=== PATIENT | female | born 1965 | race African-American/Black ===

== ENCOUNTER → 2021-01-17 13:43 | Outpatient (BNVA) | payer OTHER, SELFPAY | PROVIDERS: PCP Internal Medicine; Visit Provider Physician Assistant ==

== ENCOUNTER → 2021-01-17 13:43 | Outpatient (BNVA) | payer OTHER, SELFPAY | PROVIDERS: PCP Internal Medicine; Visit Provider Physician Assistant ==

== ENCOUNTER → 2021-02-23 13:24 | Outpatient (BNVA) | payer OTHER, SELFPAY | PROVIDERS: PCP Internal Medicine; Visit Provider Physician Assistant ==

== ENCOUNTER 2021-03-07 06:03 | Outpatient (REF) | payer OTHER, SELFPAY ==
--- NOTE | ~2021-03-07 | XR_ITS ---
EXAMINATION: XR CHEST CLINICAL INFORMATION: Shortness of breath. COMPARISON: None TECHNIQUE: 2 views of the chest were obtained. FINDINGS: The lungs are clear. The cardiomediastinal silhouette is normal in size. There is no pleural effusion or pneumothorax. No acute osseous abnormality. XR/XR chest 2V IMPRESSION: No acute cardiopulmonary findings.
--- NOTE | 2021-03-07 07:11 | ECG_ITS ---
Test Reason : SOB Blood Pressure : / mmHG Vent. Rate : 069 BPM Atrial Rate : 069 BPM P-R Int : 210 ms QRS Dur : 098 ms QT Int : 546 ms P-R-T Axes : 063 014 034 degrees QTc Int : 585 ms Sinus rhythm with sinus arrhythmia with 1st degree A-V block Possible Inferior infarct , age undetermined Abnormal ECG No previous ECGs available Referred By: Kathy Lerner Electronically Signed By:HOSSEIN JUNE
[2021-03-07 07:16] LABS: MANUAL DIFF FLAG NO
[2021-03-07 07:18] LABS: Basophils Percent Auto 0.6 % (0-2); Eosinophils Percent Auto 0.8 % (0-4); Hematocrit 42.7 % (37-47); Imm Gran Abs Auto 0.03 X10*3/uL (0.00-0.03); Imm Gran Pct Auto 0.6 % (0.0-0.4); Lymphocytes Absolute Auto 2.4 X10*3/uL (1.2-4.9); Lymphocytes Percent Auto 50.3 % (20-40); Mean Corpuscular HGB Conc 32.8 g/dl (31.0-35.0); Mean Corpuscular Hemoglobin 29.2 pg (27.0-33.0); Mean Corpuscular Volume 89.1 fL (80-98); Mean Platelet Volume 9.2 fL (9.4-12.3); Monocytes Absolute Auto 0.3 X10*3/uL (0.1-1.2); Monocytes Percent Auto 7.2 % (2-11); Neutrophils Absolute Auto 1.9 X10*3/uL (2.0-8.3); Neutrophils Percent Auto 40.5 % (45-73); Platelet Count 228 X10*3/uL (160-400); Red Blood Count 4.79 X10*6/uL (4.20-5.50); Red Cell Distribution Width 12.3 % (11.0-16.0); White Blood Count 4.8 X10*3/uL (4.8-10.8)
[2021-03-07 07:26] LABS: Estimated Average Glucose 103 mg/dL; Hemoglobin A1c % 5.2 %
[2021-03-07 07:50] LABS: Alanine Aminotransferase 25 U/L (0-31); Albumin Level 4.4 g/dL (3.5-5.0); Alkaline Phosphatase 119 U/L (39-117); Anion Gap 14 (12-20); Aspartate Amino Transferase 31 U/L (5-31); Bilirubin Total 0.5 mg/dL (0.0-1.0); Blood Urea Nitrogen 14 mg/dL (9-16); C Reactive Protein 0.08 mg/dL (< or = 0.50); Calcium 9.5 mg/dL (8.4-10.2); Carbon Dioxide 28 mmol/L (22-29); Chloride 102 mmol/L (96-108); Cholesterol 224 mg/dL; Estimated Glomerular Filt Rate 46; Glucose Fasting 102 mg/dL (60-99); HDL Cholesterol 53 mg/dL; Iron 83 mcg/dL (30-160); LDL Cholesterol Calculated 156 mg/dl; Percent Iron Saturation 26 % (15-50); Potassium 3.7 mmol/L (3.3-5.1); Sodium 140 mmol/L (135-145); Total Iron Binding Capacity 317 mcg/dL (228-428); Total Protein 8.1 g/dL (6.5-8.0); Triglycerides 77 mg/dL; Unsaturated Iron Binding 234 ug/dL
[2021-03-07 07:57] LABS: Ferritin 82 ng/mL (10-250); Vitamin D 25-OH Total 35.1 ng/mL (>30)
[2021-03-07 09:08] LABS: Folate 14.6 ng/mL (> or = 4.0); Vitamin B12 425 pg/mL (200-900)
[2021-03-08 10:47] LABS: Insulin Level Total 14.1 uIU/mL
[2021-03-08 12:22] LABS: H Pylori Breath Test NOT DETECTED (NOT DETECTED)
[2021-03-08 13:37] LABS: Calcium (PTHI) 9.4 mg/dL (8.6-10.4); PTHI 64 pg/mL (14-64)
[2021-03-10 02:22] LABS: Zinc 73 mcg/dL (60-130)
[2021-03-11 12:47] LABS: Vitamin B1 13 nmol/L (8-30)
[2021-03-11 18:22] LABS: Vitamin A 54 mcg/dL (38-98)
== END 2021-03-07 06:04 | disposition home or self-care (01) ==
LOC: HO.LAB 06:03
PROVIDERS: PCP Internal Medicine; Visit Provider Physician Assistant
DX: R06.02 Shortness of breath (principal); E66.01 Morbid (severe) obesity due to excess calories
CPT/HCPCS: 36415; 71046; 80053; 80061; 82306; 82607; 82728; 82746; 83013; 83036; 83525; 83540; 83970; 84425; 84443; 84590; 84630; 85025; 86140; 93005

== ENCOUNTER 2021-03-10 07:27 | Outpatient (REF) | payer OTHER, SELFPAY ==
--- NOTE | ~2021-03-10 | CT_ITS ---
EXAMINATION: CT ABDOMEN AND PELVIS WITH CONTRAST CLINICAL INFORMATION: There are gastric surgery status COMPARISON: None TECHNIQUE: Multidetector volumetric images were obtained from the superior aspect of the liver through the pubic symphysis following administration 85 mL of Omnipaque 350 intravenous contrast. Sagittal and coronal reformatted images were obtained on the technologist's workstation. Oral contrast: Yes This CT examination was performed using dose optimization techniques as appropriate, variously including the following: *Automated exposure control *Adjustment of mA and/or kV according to patient size (this includes techniques or standardized protocols for targeted exams where dose is matched to indication/reason for exam; i.e. extremities or head) *Use of iterative reconstruction technique DLP: 526 mGy-cm FINDINGS: LUNG BASES: The visualized lung bases are unremarkable. LIVER, GALLBLADDER, AND BILIARY TREE: The liver is low in attenuation suggestive of fatty infiltration. No focal hepatic lesion or biliary ductal dilatation is present. The gallbladder is unremarkable with no evidence of radiopaque gallstones, gallbladder wall thickening, or obvious pericholecystic inflammatory changes. PANCREAS: Unremarkable. SPLEEN: Unremarkable. ADRENAL GLANDS: Unremarkable. KIDNEYS AND URETERS: The kidneys are normal in size, shape, and attenuation. No hydronephrosis, hydroureter, or calculi seen. No perinephric stranding. BLADDER: Unremarkable. GASTROINTESTINAL TRACT: There is a gastric lap band in satisfactory position. The ankle measures 49 degrees. The small and large bowel are unremarkable. The appendix is is not identified. ABDOMINAL WALL: No significant hernia is appreciated. LYMPH NODES: Normal. VASCULAR: Unremarkable. PELVIC VISCERA: There is a small subserosal posterior uterine fundus fibroid. Adnexa appear unremarkable. OSSEOUS STRUCTURES: Unremarkable. CT/CT abdomen pelvis w con IMPRESSION: Gastric lap band. Fatty liver. Small uterine fibroid.
[2021-03-10] MEDS: iohexoL 350 MG/ML 100 ML INFUS..BTL IV (12:18)
[2021-03-10] MEDS: Barium Sulfate Oral (Berry) 450 ML ORAL.SUSP 900 ML PO (12:19)
== END 2021-03-10 07:28 | disposition home or self-care (01) ==
LOC: HO.CT 07:27
PROVIDERS: Absent Provider Physician Assistant; PCP Internal Medicine; Visit Provider Surgery
DX: R10.11 Right upper quadrant pain (principal); E66.9 Obesity, unspecified; Z98.84 Bariatric surgery status
CPT/HCPCS: 74177; Q9967

== ENCOUNTER 2021-03-16 06:57 | Outpatient (REF) | payer OTHER, SELFPAY ==
--- NOTE | ~2021-03-16 | FL_ITS ---
EXAMINATION: FL UPPER GI SERIES CLINICAL INFORMATION: Bariatric service evaluation. Prior gastric lap band. Candidate for gastric sleeve. COMPARISON: CT abdomen and pelvis with contrast 03/10/2021 TECHNIQUE: Upper GI series is performed using fluoroscopic evaluation in addition to multiple fluoroscopic spot views. The patient is imaged both upright and prone and using both thick and thin barium sulfate along with effervescent granules. Fluoroscopy time: 1.5 minutes DAP: 25.91 Gycm2 Fluoroscopic spot images: 22 FINDINGS: Preliminary surface grinder film notes gastric lap band. There is some faint retained contrast still seen in the transverse colon from CT abdomen and pelvis 03/10/2021. There are bilateral nipple piercings. There is normal esophageal motility. There is no obstruction, stricture, ulceration, or hernia. There is spontaneous gastroesophageal reflux noted during fluoroscopy to mid thoracic esophagus. There is prior gastric lap band in expected position. Contrast rapidly passes through the band to fill the stomach. There is no thickening of folds or ulcer crater. No gastric outlet obstruction. The duodenal bulb is pliable and without ulcer crater or scarring. The post bulbar duodenum the jejunal mucosal pattern are unremarkable. FL/FL upper GI series IMPRESSION: 1. Spontaneous gastroesophageal reflux to mid thoracic esophagus. No hiatal hernia. 2. Prior gastric lap band in expected position. No ulceration or gastric thickening of folds.
--- NOTE | ~2021-03-16 | US_ITS ---
EXAMINATION: US COMPLETE ABDOMEN WITH LIVER ELASTOGRAPHY CLINICAL INFORMATION: Bariatric service evaluation. E66.9 COMPARISON: CT abdomen and pelvis with contrast 03/10/2021. TECHNIQUE: Real-time imaging of the abdominal viscera. Noninvasive ultrasound liver fibrosis assessment is performed using [employer] ElastPQ point quantification shear wave elastography (pSWE) with a C5-2 MHz transducer. Multiple elastography samples are obtained. FINDINGS: PANCREAS: The pancreas is normal in size and contour and echogenicity. No pancreatic ductal dilatation. ABDOMINAL AORTA: The proximal, middle, and distal aortic segments are normal in caliber. INFERIOR VENA CAVA: Visualized portions are normal. LIVER: The liver is normal in size and smooth in contour. Hepatic parenchymal echogenicity is within normal. There is no focal parenchymal lesion or intrahepatic ductal dilatation. The right lobe measures 12.2 cm in length. The left lobe measures 10.7 cm in length. Portal flow is towards the liver (hepatopetal). Shear wave liver elastography median stiffness is 1.49 m/s (reference: normal median stiffness is 1.3 m/s or less). IQR/median stiffness to assess sampling precision is 0.17 (reference: good quality data set is IQR/median stiffness of 0.15 or less). GALLBLADDER: There are multiple layering stones in the gallbladder. No gallbladder wall thickening or pericholecystic fluid. Negative sonographic Ernandez's sign. COMMON BILE DUCT: Upper limits of normal measuring 0.6-0.7 cm in diameter. RIGHT KIDNEY: Normal. No hydronephrosis. No renal calculi or focal parenchymal lesions. The kidney measures 9.3 cm in maximum dimension. LEFT KIDNEY: Normal. No hydronephrosis. No renal calculi or focal parenchymal lesions. The kidney measures 9.2 cm in maximum dimension. SPLEEN: Normal. The spleen measures 8.4 cm in maximum dimension. FREE FLUID: None. US/US abdomen comp w elastography IMPRESSION: 1. Cholelithiasis. No gallbladder wall thickening or ductal dilatation. 2. Liver normal in size and homogeneous. 3. Liver elastography: In the absence of other known clinical signs, measurements rule out compensated advanced chronic liver disease. If there are known clinical signs, further testing may be needed for confirmation. REFERENCE: Society of Radiologists in Ultrasound Liver Stiffness Thresholds (2020): LIVER STIFFNESS THRESHOLDS: *Liver Stiffness equal or less than 1.3 m/s: High probability of being normal. *Liver Stiffness less than 1.7 m/s: In the absence of other known clinical signs, rules out compensated advanced chronic liver disease. *Liver Stiffness 1.7-2.1 m/s: Suggestive of compensated advanced chronic liver disease but need further test for confirmation. *Liver Stiffness over 2.1 m/s: Rules in compensated advanced chronic liver disease. *Liver Stiffness over 2.4 m/s: Suggestive of clinically significant portal hypertension. QUALITY OF DATA SET: *IQR/Median value equal or less than 0.15 implies a quality data set. *IQR/Median value over 0.15 implies a poor quality data set. SIGNIFICANT CHANGE FROM PRIOR EXAM: Significant change if liver stiffness measurement is 10% or greater from prior exam. OTHER CONSIDERATIONS: The stage of liver fibrosis may be overestimated in the setting of acute hepatitis, liver inflammation, elevated liver function tests, hepatic vascular congestion, obstructive cholestasis, non-fasting state, and infiltrative diseases such as amyloidosis and lymphoma. In some patients with NAFLD, the liver stiffness thresholds for compensated advanced chronic liver disease may be lower. In causes other than viral hepatitis and NAFLD, liver stiffness thresholds are not well established.
== END 2021-03-16 06:58 | disposition home or self-care (01) ==
LOC: HO.US 06:57
PROVIDERS: PCP Internal Medicine; Visit Provider Surgery
DX: Z01.818 Encounter for other preprocedural examination (principal); E66.01 Morbid (severe) obesity due to excess calories; K21.9 Gastro-esophageal reflux disease without esophagitis; R11.10 Vomiting, unspecified; Z98.84 Bariatric surgery status
CPT/HCPCS: 74240; 76705; 76981

== ENCOUNTER → 2021-03-17 07:58 | Outpatient (BNVA) | payer OTHER, SELFPAY | PROVIDERS: PCP Internal Medicine; Visit Provider Surgery ==

== ENCOUNTER 2021-03-28 08:23 | Day surgery (SDC) | payer OTHER, SELFPAY ==
--- NOTE | 2021-03-27 09:44 | HO.ANESPROP2 ---
Documented by User: Johanny Stack 03/27/21 09:46 HPI - Anesthesia Eval Consult details Narrative: 55yo F for Upper Endoscopy PMFSH Active Problems Active Problems: All Active Problems (Updated 03/17/21 @ 15:20 by Casper Barrett MD) Depression (Acute) GERD (gastroesophageal reflux disease) (Acute) BMI over 35 (Acute) Obesity (Acute) Abnormal EKG (Acute) MDD (major depressive disorder), recurrent, in partial remission (Acute) Vitamin B12 deficiency (Acute) Pre-op testing (Acute) Hx of laparoscopic gastric banding (Acute) Emesis (Acute) Obesity, Class II, BMI 35-39.9 (Acute) JOSEF on CPAP (Acute) Hypertension (Acute) Myopia (Acute) Hip bursitis (Acute) Carpal tunnel syndrome of right wrist (Acute) Urinary incontinence (Acute) Past Medical History Medical History Abnormal EKG Carpal tunnel syndrome of right wrist Depression GERD (gastroesophageal reflux disease) Hip bursitis History of Hypertension Hypoxia Myopia Obesity, Class II, BMI 35-39.9 JOSEF on CPAP Urinary incontinence Family History Family History Father No problems noted. Mother Hypertension High cholesterol Ovarian cyst Sister History of cancer Breast cancer Surgical History Surgical History History of bladder suspension procedure History of carpal tunnel surgery of right wrist Hx of laparoscopic gastric banding Social History Social History Alcohol intake: current Alcohol intake frequency: holidays/special occasions only Smoking Status: Never smoker Use of substances other than those prescribed or required for medical reasons: Yes Substance Use Type: Marijuana Have you been hit, kicked, punched, or otherwise hurt by someone within the past year? If so, by whom?: No Are you DNR?: No Advance Directives: No Advance Directives Information Provided: Yes Meds Allergies Allergy/AdvReac Type Severity Reaction Status Date / Time No Known Allergies Allergy Verified 03/17/21 15:13 Home Medications Medication Instructions Recorded Confirmed Last Taken Type bupropion HCl 300 mg 24 hr tablet, 300 mg PO DAILY 02/23/21 03/17/21 Unknown History extended release diltiazem HCl 240 mg 240 mg PO DAILY 02/23/21 03/17/21 Unknown History capsule,extended release 24 hr valsartan 160 1 tab PO DAILY 02/23/21 03/17/21 Unknown History mg-hydrochlorothiazide 12.5 mg tablet Exam Exam Date and Time: March 27, 2021 0944 Narrative Narrative: EKG 02/2021 Vent. Rate : 069 BPM Atrial Rate : 069 BPM P-R Int : 210 ms QRS Dur : 098 ms QT Int : 546 ms P-R-T Axes : 063 014 034 degrees QTc Int : 585 ms Sinus rhythm with sinus arrhythmia with 1st degree A-V block Possible Inferior infarct , age undetermined Abnormal ECG No previous ECGs available Assessment and Plan Assessment Anesthesia Assessment: Chart Reviewed Documented by User: Wayne Kim 03/28/21 10:32 [facility] Past Medical History Medical History Abnormal EKG Carpal tunnel syndrome of right wrist Depression GERD (gastroesophageal reflux disease) Hip bursitis History of Hypertension Hypoxia Myopia Obesity, Class II, BMI 35-39.9 JOSEF on CPAP Urinary incontinence Family History Family History Father No problems noted. Mother Hypertension High cholesterol Ovarian cyst Sister History of cancer Breast cancer Surgical History Surgical History History of bladder suspension procedure History of carpal tunnel surgery of right wrist Hx of laparoscopic gastric banding Social History Social History Alcohol intake: current Alcohol intake frequency: holidays/special occasions only Smoking Status: Never smoker Use of substances other than those prescribed or required for medical reasons: Yes Substance Use Type: Marijuana Have you been hit, kicked, punched, or otherwise hurt by someone within the past year? If so, by whom?: No Are you DNR?: No Advance Directives: No Advance Directives Information Provided: Yes Meds Allergies Allergy/AdvReac Type Severity Reaction Status Date / Time No Known Allergies Allergy Verified 03/17/21 15:13 Home Medications Medication Instructions Recorded Confirmed Last Taken Type bupropion HCl 300 mg 24 hr tablet, 300 mg PO DAILY 02/23/21 03/17/21 Unknown History extended release diltiazem HCl 240 mg 240 mg PO DAILY 02/23/21 03/17/21 Unknown History capsule,extended release 24 hr valsartan 160 1 tab PO DAILY 02/23/21 03/17/21 Unknown History mg-hydrochlorothiazide 12.5 mg tablet Exam Airway Mallampati Class: II TM Dist: >3cm Neck ROM: Full Loose/Missing/Broken Teeth: No Heart: [id number] Lungs: cta b/l Assessment and Plan Assessment Anesthesia Assessment: Anesthesia Plan Discussed, PAT Visit and Chart Reviewed Final Anesthetic Review NPO: Yes ASA Class: III Final Preanesthetic Review: No Changes in Pt Med Stat, Meds/Allgs Chart Reviewed, Consent Obtained/Reviewed and Anes Risks/Benef Reviewed Patient Risk: Intermediate Procedure Risk: Low Assessment/Block/Sedation in SS: Assess/Block/Sedation-SS Anesthetic Plan Anesthetic Plan: MAC: and Agree w/ Assess. and Plan Disposition: Standard PACU
--- NOTE | 2021-03-27 17:45 | MHC.SHP ---
Pre-Procedural Eval Section A The patient is an INPATIENT: No The History & Physical has been completed within 30 days and I have reviewed it.: No Section B Chief Complaint: reflux disease Details of Present Illness: GERD, s/p lap band Relevant Family History (Specify if Yes): No Relevant Social History: None Present Medications: see Short Stay Collaborative assessment Medical History: No relevant PMH History of Previous Operations: Relevant previous surgery/procedure and date(s) (lap band surgery) Allergies: Allergies Allergy/AdvReac Type Severity Reaction Status Date / Time No Known Allergies Allergy Verified 03/17/21 15:13 Review of Systems Sugical H&P ROS: Negative: Constitution, Cardiovascular, Respiratory, Neurological, Psychiatric, Hem-Onc, Allergic/Immunologic, Gastrointestinal, Genitourinary, Musculoskeletal, Integumentary, Endocrine and Eyes/Ears/Nose/Throat Exam Surgical H&P Exam: Normal: HEENT, Normal: Heart, Normal: Lungs, Normal: Extremities, Normal: Abdomen, Normal: Skin and Normal: Neurological Plan Diagnosis/Plan: Unchanged (EGD to assess GERD and to rule out erosion from lap band) I have reviewed the history and physical and performed a pertinent physical examination on my patient. No changes have occurred unless specified.
[2021-03-28 08:49] VITALS: BP 143/94; PULSE 74; RESP 18; TEMP 35.9; O2SAT 97
[2021-03-28 09:17] VITALS: BMI 35.5
[2021-03-28] MEDS: Lactated Ringers 1,000 ML 100 ML IVCONT (09:19)
[2021-03-28 09:26] LABS: COVID-19 Test Negative (Negative)
--- NOTE | 2021-03-28 11:07 | P.BOP_ITS ---
Brief Operative Note Date of Service: 03/28/21 Pre-op diagnosis: Nausea and vomiting Post-op diagnosis: same (Esophagitis grade I and hiatal hernia) Procedure: DATE: 03/28/2021 PREOPERATIVE DIAGNOSIS: GERD, nausea and vomiting s/p lap band POSTOPERATIVE DIAGNOSIS: Same as above. Esophagitis grade I and diaphragmatic hernia PROCEDURE: Alnhfthh-kfkhbi-arllflczslki with biopsies Surgeon: Bijan Barrett M.D.. Ph.D. Special Education Preschool Teacher: None Anesthesia: IV sedation Estimated blood loss: Minimal FINDINGS AND PROCEDURE: OPERATIVE INDICATIONS: The patient is a 55 year old female known to me who underwent a laparoscopic gastric band elsewhere. The patient had poor weight loss so far and has been complaining of GERD, nausea and vomiting. Based on this information I recommended an upper endoscopy to evaluate the patient's symptoms. Risks and complications of the surgery were discussed with the patient in advance particularly the possibility of perforation or bleeding that may require surgical intervention. The patient understood the risks and was in agreement with the plan. PROCEDURE: After informed consent was obtained by the patient, the patient was transferred to the Operating Room and was placed in the supine position. After successful induction of IV sedation, a mouth block was inserted and the patient was placed in the left lateral decubitus position. An upper endoscopy was performed next, the oropharynx and esophagus appeared within the normal limits. There was a 3cm hiatal hernia. The z-line was irregular with tongues of gastric mucosa protruding to the esophagus in a >25% of circumference. The stomach was entered and it appeared to be of normal size. There was no band erosion, gastritis and no ulcer. The scope was advanced into the duodenum which appeared to be normal as well. Retroflexion was performed and again no band erosion was seen. At that point the duodenum and the stomach were decompressed and the scope was withdrawn from the patient's mouth. The patient was awaken and was transferred in stable condition to the Recovery Room for further care. I was present and performed all steps of the procedure. There were no residents to assist with this case. Bijan Barrett M.D., Ph.D. Surgeon: Casper Barrett MD Anesthesia: MAC Was an Special Education Preschool Teacher used for this Procedure?: No Estimated blood loss (mL): 0 IV fluids (mL): 400 Urine output (mL): 0 (No Kerr to record) Pathology: other (1) GE junction x2 2) Distal esophagus x2 3) stomach x1 ) Condition: stable Disposition: PACU
[2021-03-28 11:14] VITALS: BP 107/63; PULSE 86; RESP 12; TEMP 36.7; O2SAT 98
[2021-03-28 11:29] VITALS: BP 135/90; PULSE 71; RESP 17; TEMP 36.7; O2SAT 99
== END 2021-03-28 12:45 ==
LOC: HO.SSS 08:24
PROVIDERS: PCP Internal Medicine; Visit Provider Surgery
PROC: 0DJ08ZZ Inspection of Upper Intestinal Tract, Via Natural or Artificial Opening Endoscopic (ICD-10-PCS; CPT 43235; principal; 2021-03-28 10:30)
DX: K21.00 Gastro-esophageal reflux disease with esophagitis, without bleeding (principal); Z98.84 Bariatric surgery status; R11.2 Nausea with vomiting, unspecified; K44.9 Diaphragmatic hernia without obstruction or gangrene; I10 Essential (primary) hypertension; G47.33 Obstructive sleep apnea (adult) (pediatric); Z99.89 Dependence on other enabling machines and devices; Z79.899 Other long term (current) drug therapy
CPT/HCPCS: 43239; 36415; 87635; 88305; 88342; J1100

== ENCOUNTER → 2021-03-29 08:21 | Outpatient (BNVA) | payer OTHER, SELFPAY | PROVIDERS: PCP Internal Medicine; Visit Provider Dietitian, Registered | DX: E66.9 Obesity, unspecified (principal); Z68.36 Body mass index [BMI] 36.0-36.9, adult | CPT/HCPCS: 97802 ==

== ENCOUNTER → 2021-04-07 08:20 | Outpatient (BNVA) | payer OTHER, SELFPAY | PROVIDERS: PCP Internal Medicine; Visit Provider Surgery ==

== ENCOUNTER → 2021-05-02 07:45 | Outpatient (BNVA) | payer OTHER, SELFPAY | PROVIDERS: PCP Internal Medicine; Visit Provider Surgery ==

== ENCOUNTER → 2021-05-09 07:59 | Outpatient (REF) | payer OTHER, SELFPAY ==
--- NOTE | 2021-05-09 08:03 | CA_ITS ---
Transthoracic Echocardiogram Patient (Last, First, Middle): Ximnea Jordan S Gender: Female Date of : 1965 Age: 55 Procedure Date: 05/09/2021 Procedure Type: Transthoracic Echocardiogram Location: OP Height: 154.94 cm Weight: 81.65 kg BSA: 1.81 m2 Heart Rate: bpm BP: 125 / 80 mmHg Senior Supply Chain Analyst: Referring MD: Casper Barrett MD Symptoms: R94.31 - Abnormal electrocardiogram [ECG] [EKG] Study Quality: Good ECG Rhythm: Sinus Conclusions: - The left ventricular systolic function is normal. The visually estimated ejection fraction is between 55-60%. - There is mild anterior mitral leaflet thickening. There is bowing of the posterior mitral leaflet without obvious prolapse. There is trace mitral valve regurgitation. Findings Left Ventricle Normal left ventricular cavity size. There is normal left ventricular wall thickness. The left ventricular systolic function is normal. The visually estimated ejection fraction is between 55-60%. There is no evidence of regional wall motion abnormalities. E/E prime ratio is between 8 and 15 consistent with indeterminate filling pressures. Evidence suggests grade I (mild) diastolic dysfunction. Right Ventricle Normal right ventricular cavity size and systolic function. Atria The left atrium is normal in size. The right atrium is normal in size. Aortic Valve There is a normal trileaflet aortic valve. There is no aortic valve stenosis. There is no aortic valve regurgitation. Mitral Valve There is mild anterior mitral leaflet thickening. There is bowing of the posterior mitral leaflet without obvious prolapse. There is trace mitral valve regurgitation. There is no mitral valve stenosis. Pulmonic Valve The pulmonic valve was not well visualized. Tricuspid Valve Normal tricuspid valve structure. There is trace tricuspid valve regurgitation. The pulmonary artery systolic pressure is normal. Great Vessels The aortic annulus, sinuses of valsalva, and asc aorta are normal in size. Venous The inferior vena cava is normal in size and collapses greater than 50% with inspiration. Pericardium/Pleural There is no evidence of pericardial effusion. Prior Study Comparison No prior study available for comparison. Measurements 2D Linear Measurements IVSd: 1.22 0.6-0.9/0.6-1.0 cm LVIDd: 3.39 3.9-5.3/4.2-5.9 cm LVIDd Index: 1.87 2.4-3.2/2.2-3.1 cm/m2 LVIDs: 2.16 2.0-3.6 cm LVPWd: 1.26 0.7-1.1 cm Ao Root: 3.60 2.1-3.5 cm LA Diam: 2.90 2.7-3.8/3.0-4.0 cm LAIDs Index: 1.60 1.5-2.3 cm/m2 LV Mass: 169.84 67-162/88-224 g LV Mass Index: 93.83 43-95/49-115 g/m2 LVOT Diam: 2.10 3.0+(-)1.3 cm Mitral Valve MV Pk E: 0.56 MV PK A: 0.91 MV Decel Time: 231.00 E/A: 0.60 E'Lateral: 4.24 E'Medial: 4.90 E/E' Med: 11.40 E/E' Lat: 13.20 PHT: 68.00 MVA PHT: 3.24 Decel [place]: 2.43 Aortic Valve AoV Pk Frankie: 1.30 AoV Mn Frankie: 0.87 AoV VTI: 0.27 AoV Pk Grad: 7.00 Aov Mn Grad: 4.00 JOYA Cont.VTI: 1.79 LVOT LVOT Pk Frankie: 0.65 LVOT Mn Frankie: 0.48 LVOT VTI: 0.14 LVOT Pk Grad: 2.00 LVOT Mn Grad: 1.00 LVOT Diam: 2.10 LVOT Area: 3.46 Diastolic Function MV Pk E: 0.56 MV Pk A: 0.91 E/A: 0.60 E'Medial: 4.90 E/E' Med: 11.40 E' Laterial: 4.24 E/E' Lat: 13.20 Tricuspid Valve TR Pk Frankie: 1.65 TR Pk Grad: 11.00 RA Press: 3.00 Great Vessels Aorta Ao Root-2D: 3.60 2.0-3.7 cm Ao Asc: 3.50 2.1-3.4 cm Pulmonary Valve PV Pk Frankie: 0.86 Peak PV Grad: 3.00 Updated in Other Vendor System with Status of Final Salvatore Harden MD electronically signed on 05/09/2021 1:58:46 PM with status of Final
--- NOTE | 2021-05-09 08:03 | CA_ITS ---
Acquisition Time: 2021-05-09 10:01:07 Total Exercise Time: 00:08:06 Test Indications: Abnormal ECG Medications: LOSARTAN Protocol: AVANI Max HR: 141 BPM 84% of Pred: 166 BPM Max BP: 140/070 mmHG Max Work Load: 10.1 METS Exercise stress test with exercise 8 min 6 sec of Avani protocol, achieving 78% MPHR, 10.1 METs, with request to stop due to fatigue/ knee discomfort, without anginal symptoms, with isolated PVCs, with normotensive response to exercise, with nondiagnostic EKG for ischemia due to suboptimal heart rate. Test reviewed with Dr Harden. Referred By: Kathy Lerner Overread By: JEREMI COLVIN
== END ==
LOC: HO.CARD 07:59
PROVIDERS: Visit Provider Surgery
DX: Z01.818 Encounter for other preprocedural examination (principal); R06.02 Shortness of breath; I10 Essential (primary) hypertension; R94.31 Abnormal electrocardiogram [ECG] [EKG]
CPT/HCPCS: 93017; 93306

== ENCOUNTER → 2021-06-07 08:03 | Outpatient (BNVA) | payer OTHER, SELFPAY | PROVIDERS: PCP Internal Medicine; Visit Provider Surgery ==

== ENCOUNTER → 2021-07-19 07:45 | Outpatient (BNVA) | payer OTHER, SELFPAY | PROVIDERS: PCP Internal Medicine; Visit Provider Surgery ==

== ENCOUNTER → 2021-08-18 08:14 | Outpatient (BNVA) | payer OTHER, SELFPAY | PROVIDERS: PCP Internal Medicine; Visit Provider Surgery ==

== ENCOUNTER → 2021-09-01 08:13 | Outpatient (BNVA) | payer OTHER, SELFPAY | PROVIDERS: PCP Internal Medicine; Referring Provider Internal Medicine; Visit Provider Physician Assistant ==

== ENCOUNTER → 2021-09-08 10:48 | Outpatient (BNVA) | payer OTHER, SELFPAY | PROVIDERS: PCP Internal Medicine; Referring Provider Internal Medicine; Visit Provider Physician Assistant Surgical ==

== ENCOUNTER → 2021-09-11 08:07 | Outpatient (BNVA) | payer OTHER, SELFPAY | PROVIDERS: PCP Internal Medicine; Visit Provider Surgery ==

== ENCOUNTER → 2021-09-13 09:28 | Outpatient (BNVA) | payer OTHER, SELFPAY | PROVIDERS: PCP Internal Medicine; Visit Provider Physician Assistant ==

== ENCOUNTER 2021-09-19 08:26 | Inpatient (IN) | payer OTHER, SELFPAY ==
[2021-09-12 11:46] VITALS: BMI 31.2
[2021-09-13 09:20] LABS: MANUAL DIFF FLAG NO
[2021-09-13 10:08] LABS: Basophils Percent Auto 0.5 % (0-2); Eosinophils Absolute Auto 0.1 X10*3/uL (0.0-0.4); Eosinophils Percent Auto 1.1 % (0-4); Hematocrit 41.6 % (37-47); Hemoglobin 13.9 g/dl (12.0-16.0); Imm Gran Abs Auto 0.02 X10*3/uL (0.00-0.03); Imm Gran Pct Auto 0.5 % (0.0-0.4); Lymphocytes Absolute Auto 2.2 X10*3/uL (1.2-4.9); Lymphocytes Percent Auto 50.7 % (20-40); Mean Corpuscular HGB Conc 33.4 g/dl (31.0-35.0); Mean Corpuscular Hemoglobin 29.7 pg (27.0-33.0); Mean Corpuscular Volume 88.9 fL (80-98); Mean Platelet Volume 9.6 fL (9.4-12.3); Monocytes Absolute Auto 0.3 X10*3/uL (0.1-1.2); Monocytes Percent Auto 6.7 % (2-11); Neutrophils Absolute Auto 1.8 X10*3/uL (2.0-8.3); Neutrophils Percent Auto 40.5 % (45-73); Platelet Count 202 X10*3/uL (160-400); Red Blood Count 4.68 X10*6/uL (4.20-5.50); Red Cell Distribution Width 12.9 % (11.0-16.0); White Blood Count 4.4 X10*3/uL (4.8-10.8)
[2021-09-13 10:14] LABS: INTERNATIONAL NORM RATIO 1.1 (0.9-1.1); Prothrombin Time 12.2 SEC (9.9-13.0)
[2021-09-13 10:16] LABS: Partial Thromboplastin Time 41.9 SEC (24.1-38.0)
[2021-09-13 10:41] LABS: Alanine Aminotransferase 19 U/L (0-31); Albumin Level 4.2 g/dL (3.5-5.0); Alkaline Phosphatase 109 U/L (39-117); Anion Gap 14 (12-20); Aspartate Amino Transferase 26 U/L (5-31); Bilirubin Total 0.6 mg/dL (0.0-1.0); Blood Urea Nitrogen 8 mg/dL (9-16); C Reactive Protein 0.13 mg/dL (< or = 0.50); Calcium 9.9 mg/dL (8.4-10.2); Carbon Dioxide 28 mmol/L (22-29); Chloride 103 mmol/L (96-108); Cholesterol 226 mg/dL; Creatinine Clr Calc Pharmacy 56.9; Estimated Glomerular Filt Rate 52; Glucose Random 82 mg/dL (60-115); HDL Cholesterol 56 mg/dL; LDL Cholesterol Calculated 153 mg/dl; Potassium 3.6 mmol/L (3.3-5.1); Sodium 141 mmol/L (135-145); Total Protein 7.8 g/dL (6.5-8.0); Triglycerides 87 mg/dL
[2021-09-13 10:46] LABS: Estimated Average Glucose 100 mg/dL; Hemoglobin A1c % 5.1 %
[2021-09-13 11:08] LABS: Insulin 8 uU/mL (2-29)
--- NOTE | 2021-09-18 10:54 | HO.ANESPROP2 ---
Documented by User: Johanny Stack NP 09/18/21 11:00 HPI - Anesthesia Eval Consult details Narrative: 55yo M for Lap Band Removal Conversion to Gastric Sleeve Clear per cardiology: No cardiac hx. EKG shows inferior Q wave. She had echo showing normal EF, grade 1 diastolic dysfunction, mild mitral leaflet thickening and bowing without obvious prolapse. ETT with exercise 8 min 10.1 MET no angina or EKG changes noted at acheived 78% MPHR.? case reviewed with dr García. Pt is low to intermediate cardiac risk to proceed with bariatric surgery. Call/ consult cardiology if needed [facility] Active Problems Active Problems: All Active Problems (Updated 09/12/21 @ 11:45 by Gloria West, RN) JOSEF on CPAP (Acute) Emesis (Acute) Pre-op testing (Acute) Vitamin B12 deficiency (Acute) MDD (major depressive disorder), recurrent, in partial remission (Acute) Obesity (Acute) BMI over 35 (Acute) BMI 34.0-34.9,adult (Acute) BMI 32.0-32.9,adult (Acute) BMI 33.0-33.9,adult (Acute) Depression (Acute) GERD (gastroesophageal reflux disease) (Acute) Abnormal EKG (Acute) Hx of laparoscopic gastric banding (Acute) Obesity, Class II, BMI 35-39.9 (Acute) Hypertension (Acute) Myopia (Acute) Hip bursitis (Acute) Carpal tunnel syndrome of right wrist (Acute) Urinary incontinence (Acute) Past Medical History Medical History Abnormal EKG Anxiety Carpal tunnel syndrome of right wrist Depression GERD (gastroesophageal reflux disease) Hiatal hernia Hip bursitis History of Hypertension Hypoxia Low back pain Myopia Obesity, Class II, BMI 35-39.9 Sleep apnea Urinary incontinence Family History Family History Father No problems noted. Mother Hypertension High cholesterol Ovarian cyst Sister History of cancer Breast cancer Surgical History Surgical History History of bladder suspension procedure History of carpal tunnel surgery of right wrist History of esophagogastroduodenoscopy (EGD) Hx of colonoscopy Hx of laparoscopic gastric banding Social History Social History (Updated 09/12/21 @ 11:52 by Gloria West RN) Are you a primary day care teacher to a significant other at home: No Do you presently have visiting nurse or other home services: No Alcohol intake: current Alcohol intake frequency: holidays/special occasions only Patient Tobacco Use Status: Never used Tobacco Have you been hit, kicked, punched, or otherwise hurt by someone within the past year? If so, by whom?: No Are you DNR?: No Advance Directives: No Advance Directives Information Provided: No (info mailed) Advance Directives on File: No Recently lost weight without trying: No Patient : No Meds Allergies Allergy/AdvReac Type Severity Reaction Status Date / Time No Known Allergies Allergy Verified 09/19/21 08:39 Home Medications Medication Instructions Recorded Confirmed Last Taken Type bupropion HCl 300 mg 24 hr tablet, 300 mg PO DAILY 02/23/21 09/13/21 09/19/21 06:00 History extended release diltiazem HCl 240 mg 240 mg PO DAILY 02/23/21 09/13/21 Unknown History capsule,extended release 24 hr valsartan 160 1 tab PO DAILY 02/23/21 09/13/21 Unknown History mg-hydrochlorothiazide 12.5 mg tablet Exam Exam Date and Time: September 18, 2021 1054 Height,Weight and Vital Signs: Height 5 ft 2 in Weight 77.564 kg Pertinent Lab Results Pertinent Lab Results: Laboratory Tests 09/13/21 09/13/21 09/13/21 09:15 09:15 09:15 WBC 4.4 L RBC 4.68 Hgb 13.9 Hct 41.6 MCV 88.9 MCH 29.7 MCHC 33.4 RDW 12.9 Plt Count 202 MPV 9.6 Immature Gran % (Auto) 0.5 H Neut % (Auto) 40.5 L Lymph % (Auto) 50.7 H [place] % (Auto) 6.7 Eos % (Auto) 1.1 Baso % (Auto) 0.5 Lymph # (Auto) 2.2 [place] # (Auto) 0.3 Eos # (Auto) 0.1 Baso # (Auto) 0.0 Abs Immat Gran (auto) 0.02 Absolute Neuts (auto) 1.8 L Absolute Nucleated RBC 0.000 Nucleated RBC % (auto) 0.0 PT 12.2 INR 1.1 APTT 41.9 H Sodium 141 Potassium 3.6 Chloride 103 Carbon Dioxide 28 Anion Gap 14 BUN 8 L Creatinine 1.09 Estim Creat Clear Calc 56.9 Estimated GFR 52 Random Glucose 82 Estimat Average Glucose Hemoglobin A1c % Insulin Level 8 Calcium 9.9 Total Bilirubin 0.6 AST 26 ALT 19 Alkaline Phosphatase 109 C-Reactive Protein 0.13 Total Protein 7.8 Albumin 4.2 Triglycerides 87 Cholesterol 226 LDL Cholesterol, Calc 153 HDL Cholesterol 56 TSH 0.80 Blood Type Antibody Screen 09/13/21 09/13/21 09:15 09:15 WBC RBC Hgb Hct MCV MCH MCHC RDW Plt Count MPV Immature Gran % (Auto) Neut % (Auto) Lymph % (Auto) [place] % (Auto) Eos % (Auto) Baso % (Auto) Lymph # (Auto) [place] # (Auto) Eos # (Auto) Baso # (Auto) Abs Immat Gran (auto) Absolute Neuts (auto) Absolute Nucleated RBC Nucleated RBC % (auto) PT INR APTT Sodium Potassium Chloride Carbon Dioxide Anion Gap BUN Creatinine Estim Creat Clear Calc Estimated GFR Random Glucose Estimat Average Glucose 100 Hemoglobin A1c % 5.1 Insulin Level Calcium Total Bilirubin AST ALT Alkaline Phosphatase C-Reactive Protein Total Protein Albumin Triglycerides Cholesterol LDL Cholesterol, Calc HDL Cholesterol TSH Blood Type A Positive Antibody Screen NEGATIVE Narrative Narrative: EKG 02/2021 Vent. Rate : 069 BPM ? ? Atrial Rate : 069 BPM ?? P-R Int : 210 ms? QRS Dur : 098 ms ? ? QT Int : 546 ms ? ? ? P-R-T Axes : 063 014 034 degrees ?? QTc Int : 585 ms ? Sinus rhythm with sinus arrhythmia with 1st degree A-V block Possible Inferior infarct , age undetermined Abnormal ECG No previous ECGs available ECHO 04/2021 Conclusions: - The left ventricular systolic function is normal.? The visually estimated ejection fraction is between 55-60%. ? - There is mild anterior mitral leaflet thickening. There is ? ? bowing of the posterior mitral leaflet without obvious prolapse. There is trace mitral valve regurgitation. ?? Exercise stress 04/2021 Protocol: YANG ? Max HR: 141 BPM? 84% of? Pred: 166 BPM Max BP: 140/070 mmHG Max Work Load: 10.1 METS ? Exercise stress test with exercise 8 min 6 sec of Yang protocol, achieving 78% ?MPHR, 10.1 METs, with request to stop due to fatigue/ knee discomfort, without ?anginal symptoms, with isolated PVCs, with normotensive response to exercise, ?with nondiagnostic EKG for ischemia due to suboptimal heart rate. Test reviewed ?with Dr Harden. Assessment and Plan Assessment Anesthesia Assessment: Chart Reviewed Documented by User: Cortney Alvarado MD 09/19/21 10:47 [facility] Active Problems Active Problems: All Active Problems (Updated 09/12/21 @ 11:45 by Gloria West RN) JOSEF on CPAP (Acute). Not using CPAP Vitamin B12 deficiency (Acute) MDD (major depressive disorder), recurrent, in partial remission (Acute) Obesity (Acute) BMI over 35 (Acute) BMI 34.0-34.9,adult (Acute) BMI 32.0-32.9,adult (Acute) BMI 33.0-33.9,adult (Acute) Depression (Acute) GERD (gastroesophageal reflux disease) (Acute) Abnormal EKG (Acute) Hx of laparoscopic gastric banding (Acute) 10 yrs ago Obesity, Class II, BMI 35-39.9 (Acute) Hypertension (Acute) Myopia (Acute) Hip bursitis bilateral Carpal tunnel syndrome of right wrist (Acute) Urinary incontinence (Acute) Past Medical History Medical History Abnormal EKG Anxiety Carpal tunnel syndrome of right wrist Depression GERD (gastroesophageal reflux disease) Hiatal hernia Hip bursitis History of Hypertension Hypoxia Low back pain Myopia Obesity, Class II, BMI 35-39.9 Sleep apnea Urinary incontinence Family History Family History Father No problems noted. Mother Hypertension High cholesterol Ovarian cyst Sister History of cancer Breast cancer Family history of problems with anesthesia: No Surgical History Surgical History History of bladder suspension procedure History of carpal tunnel surgery of right wrist History of esophagogastroduodenoscopy (EGD) Hx of colonoscopy Hx of laparoscopic gastric banding History of Problems with Anesthesia: No Social History Social History (Updated 09/12/21 @ 11:52 by Gloria West RN) Are you a primary day care teacher to a significant other at home: No Do you presently have visiting nurse or other home services: No Alcohol intake: current Alcohol intake frequency: holidays/special occasions only Patient Tobacco Use Status: Never used Tobacco Have you been hit, kicked, punched, or otherwise hurt by someone within the past year? If so, by whom?: No Are you DNR?: No Advance Directives: No Advance Directives Information Provided: No (info mailed) Advance Directives on File: No Recently lost weight without trying: No Patient : No Meds Allergies Allergy/AdvReac Type Severity Reaction Status Date / Time No Known Allergies Allergy Verified 09/19/21 08:39 Home Medications Medication Instructions Recorded Confirmed Last Taken Type bupropion HCl 300 mg 24 hr tablet, 300 mg PO DAILY 02/23/21 09/13/21 09/19/21 06:00 History extended release diltiazem HCl 240 mg 240 mg PO DAILY 02/23/21 09/13/21 Unknown History capsule,extended release 24 hr valsartan 160 1 tab PO DAILY 02/23/21 09/13/21 Unknown History mg-hydrochlorothiazide 12.5 mg tablet Exam Height,Weight and Vital Signs: Height 5 ft 2 in Weight 77.564 kg Vital Signs Temp Pulse Resp BP Pulse Ox 09/19/21 09:10 96.9 F 65 20 126/78 98 Narrative Narrative: EKG 02/2021 Vent. Rate : 069 BPM ? ? Atrial Rate : 069 BPM ?? P-R Int : 210 ms? QRS Dur : 098 ms ? ? QT Int : 546 ms ? ? ? P-R-T Axes : 063 014 034 degrees ?? QTc Int : 585 ms ? Sinus rhythm with sinus arrhythmia with 1st degree A-V block Possible Inferior infarct , age undetermined Abnormal ECG No previous ECGs available ECHO 04/2021 Conclusions: - The left ventricular systolic function is normal.? The visually estimated ejection fraction is between 55-60%. ? - There is mild anterior mitral leaflet thickening. There is ? ? bowing of the posterior mitral leaflet without obvious prolapse. There is trace mitral valve regurgitation. ?? Exercise stress 04/2021 Protocol: YANG ? Max HR: 141 BPM? 84% of? Pred: 166 BPM Max BP: 140/070 mmHG Max Work Load: 10.1 METS ? Exercise stress test with exercise 8 min 6 sec of Yang protocol, achieving 78% ?MPHR, 10.1 METs, with request to stop due to fatigue/ knee discomfort, without ?anginal symptoms, with isolated PVCs, with normotensive response to exercise, ?with nondiagnostic EKG for ischemia due to suboptimal heart rate. Test reviewed ?with Dr Harden. Laboratory Results - last 24 hr 09/19/21 08:44 COVID-19 (JAMES) Negative COVID-19 Clin Com See Note Airway Mallampati Class: II TM Dist: >3cm Neck ROM: Full Loose/Missing/Broken Teeth: No Heart: RRR Lungs: CTAB Assessment and Plan Assessment Anesthesia Assessment: Anesthesia Plan Discussed Final Anesthetic Review Family History of Problems with Anesthesia: No History of Problems with Anesthesia: No NPO: Yes ASA Class: III Final Preanesthetic Review: No Changes in Pt Med Stat, Meds/Allgs Chart Reviewed, Consent Obtained/Reviewed and Anes Risks/Benef Reviewed Patient Risk: Intermediate Procedure Risk: Intermediate Assessment/Block/Sedation in SS: Assess/Block/Sedation- Anesthetic Plan Anesthetic Plan: GA Disposition: Standard PACU and Inp. Admit - Standard Bed
--- NOTE | 2021-09-18 18:39 | MHC.SHP ---
Pre-Procedural Eval Section A Date of Service: 09/18/21 The patient is an INPATIENT: Yes The History & Physical has been completed within 30 days and I have reviewed it.: Yes Section B Chief Complaint: Obesity Relevant Family History (Specify if Yes): No Relevant Social History: None Present Medications: None Medical History: No relevant PMH History of Previous Operations: No relevant previous surgery Allergies: Allergies Allergy/AdvReac Type Severity Reaction Status Date / Time No Known Allergies Allergy Verified 09/13/21 15:21 Review of Systems Sugical H&P ROS: Negative: Constitution, Cardiovascular, Respiratory, Neurological, Psychiatric, Hem-Onc, Allergic/Immunologic, Gastrointestinal, Genitourinary, Musculoskeletal, Integumentary, Endocrine and Eyes/Ears/Nose/Throat Exam Surgical H&P Exam: Normal: HEENT, Normal: Heart, Normal: Lungs, Normal: Extremities, Normal: Abdomen, Normal: Skin and Normal: Neurological Plan Diagnosis/Plan: Unchanged I have reviewed the history and physical and performed a pertinent physical examination on my patient. No changes have occurred unless specified.
[2021-09-19] VITALS (15 sets, daily range): BP systolic 114–146; BP diastolic 64–86; PULSE 65–85; RESP 14–20; TEMP 36–36.7; O2SAT 95–100
[2021-09-19 09:33] LABS: COVID-19 Test Negative (Negative); IDNOW Serial# 9DD0AD1C
[2021-09-19] MEDS: Lactated Ringers 1,000 ML 999 ML IV (09:53)
[2021-09-19] MEDS: Lactated Ringers 1,000 ML 100 ML IVCONT ×2 (10:54→16:27)
--- NOTE | 2021-09-19 11:24 | PM.PNGS ---
Subjective Subjective Date of Service: 09/20/21 Physical Exam Vital Signs: Vital Signs: Last Vital Signs Temp 96.9 F 09/19/21 09:10 Pulse 65 09/19/21 09:10 Resp 20 09/19/21 09:10 BP 126/78 09/19/21 09:10 Pulse Ox 98 09/19/21 09:10 Body Mass Index 31.2 GI: Inspection: Yes normal to inspection and Yes incision (clean, dry and intact) Extrem: Right lower extremity: normal to inspection (no calf tenderness) Left lower extremity: normal to inspection (no calf tenderness) Procedures Date of Service Date of Service: 09/20/21 Progress Note: A&P Assessment and plan (1) Obesity: Status: Acute Assessment and Plan: s/p lap band removal and accessories, laparoscopic sleeve gastrectomy, lysis of adhesions repair of diaphragmatic hernia, and gastropexy Doing well Check am labs. If OK, will discharge home? (2) BMI 32.0-32.9,adult: Status: Acute (3) JOSEF on CPAP: Status: Acute (4) Hypertension: Status: Acute (5) GERD (gastroesophageal reflux disease): Status: Acute (6) Hx of laparoscopic gastric banding: Status: Acute (7) Urinary incontinence: Status: Acute (8) Neuropathy: Status: Acute (9) Diaphragmatic hernia: Status: Acute (10) Cholelithiasis: Status: Acute (11) AV block, 1st degree: Status: Acute (12) Intra-abdominal adhesions: Status: Acute Fall Risk Details Current Medications: Current Medications Fentanyl (Fentanyl Citrate/Pf 100 Mcg/2 Ml Vial) 25 mcg IVPUSH Q5M PRN; Protocol PRN Reason: Pain, Moderate (Pain Scale 4-6 Hydromorphone HCl (Hydromorphone Hcl 0.5 Mg/0.5 Ml Syringe) 0.25 mg IVPUSH Q5M PRN; Protocol PRN Reason: Pain, Severe (Pain Scale 7-10) Lactated Ringer's (Lr) 1,000 mls @ 100 mls/hr IVCONT .Q10H JENIFFER Last Admin: 09/19/21 10:54 Dose: 100 mls/hr Documented by: Promethazine HCl 6.25 mg/ (Sodium Chloride) 50.25 mls @ 201 mls/hr IV ONCE PRN PRN Reason: Nausea and Vomiting Ondansetron HCl (Ondansetron Hcl 4 Mg/2 Ml Vial) 4 mg IVPUSH ONCE PRN PRN Reason: Nausea and Vomiting Time Spent With Patient Time: Total time spent is greater than 50% in coordination of care (as documented) at patient's floor/unit and/or counseling patient: Time with patient: less than 15 minutes Quality Stroke Does the patient have a stroke diagnosis?: No VTE Prior VTE?: No VTE Risk Level:: Surgical - moderate VTE Device Contraindication: N/A - Device Ordered VTE Drug Contraindication: Treatment Not Indicated
--- NOTE | 2021-09-19 11:27 | PM.OP ---
Brief Operative Note Date of Service: 09/19/21 Pre-op diagnosis: Obesity and comorbidities Post-op diagnosis: same (& abdominal adhesions & large diaphragmatic hernia) Procedure: PROCEDURE: Esophago-gastroscopy, laparoscopic repair of incarcerated diaphragmatic hernia,capsulectomy, laparoscopic remoaal of gastric band and accessories, extensive laparoscopic lysis of adhesions, laparoscopic sleeve gastrectomy and laparoscopic gastropexy INDICATIONS: This is a 55 year-old female with a BMI of 32.3 kg/m2 (initial BMI prior to preop weight loss: 35.1 kg/m2) and associated comorbid conditions as described previously. After appropriate workup and a 19.4 lbs preoperative weight loss was performed, the patient was electively scheduled for laparoscopic, possibly open revision of gastric band to sleeve gastrectomy. The risks and complications of the procedure were discussed with the patient in advance, particularly the possibility of ; pulmonary embolism; staple line leak; bleeding; GERD; cardiac, pulmonary, or renal complications; as well as long-term problems such as insufficient weight loss, vitamin deficiency, strictures, or ulcers. The patient understood all the risks, and was in agreement to proceed with surgery. DESCRIPTION OF PROCEDURE: After informed consent was obtained from the patient, the patient was given preoperative antibiotics, and was transferred to the operating room. After successful induction of general anesthesia, pneumatic compressive devices were placed on both lower extremities. An upper endoscopy was performed next. The oropharynx and esophagus appeared to be within normal limits. There was a diaphragmatic hernia present of moderate size consistent with the findings of the preoperative upper GI. The stomach was entered and there was no erosion. Then after all fluid and air were suctioned and the stomach was fully decompressed, the scope was withdrawn and secured in the mid esophagus. The patient was then prepped and draped in the usual sterile manner, and abdominal access was established at the right upper quadrant with the Elenita technique. A 12 mm blunt port was inserted, and the abdomen was insufflated with CO2 to a pressure of 15 mmHg. Under direct visualization, additional ports were placed, specifically two 5 mm Versi-step ports to the left upper quadrant, and a 5 mm Versi-Step port to the right upper quadrant. 1% lidocaine plain was used to infiltrate all port sites as well as all fascia defects. Using the EndoClose suture passer device, I placed a #1 Polysorb tie across the falciform ligament in order to retract it up against the abdominal wall and prevent injury of the ligament with our instruments during the procedure. Following that, the patient was placed in a steep reverse Trendelenburg position. An additional 5 mm port was placed to the right flank for the Mediflex retractor that was used to retract the left lobe of the liver. There were adhesions in the abdomen from previous lap band involving the stomach and the undersurface of the left lobe of the liver. Those were lysed completely with the ultrasonic device. The patient has a lap-band gastric band type. It was identified and using the Thunderbeat, the capsule was opened and the band was freed from surrounding tissues. Once it was adequately mobile, it was cut and was removed from the Elenita port along with the intra-abdominal portion of the tubing system. The gastro-gastric wrap was then taken down with the Thunderbeat all the way to the angle of His. It was very difficult and required very tedious dissection because the other surgeon chose to use a running suture to perform the gastric band wrap. The previous Ethibond suture was identified and all knots were divided. Careful dissection was required to unwrap the stomach completely and restore its normal position. That was accomplished. To prevent stricture at the previous band site, the fibrinous capsule was freed anteriorly from the GE junction and it was divided completely. Then a portion of the capsule was completely resected and removed using the Thunderbeat. The gastro-esophageal fat pad was opened with the ultrasonic device (Thunderbeat, Olympus) and the anterior esophagus and hiatus were exposed. The angle of His was opened with the ultrasonic device the fundus of the stomach from any diaphragmatic and splenic attachments. I then opened the gastrocolic ligament between the transverse colon and the greater curvature of the stomach with the ultrasonic device to enter the lesser sac and facilitate the ligation of the short gastric vessels. I started at a mid-point along the greater curvature and using the Thunderbeat, all short gastric vessels were divided all the way to the angle of His until the left cherelle was completely dissected at its entirety. I then divided the gastro-colic ligament distally to a distance of about 3-4 cm proximal to the esophagus. There were extensive congenital adhesions between the pancreas and posterior gastric wall. Those were lysed completely with the ultrasonic device. Adhesiolysis took approximately 120 min to complete. Total opeative time was 4 hours. There was an obvious significant-sized hiatal hernia. I continued dissecting along the hiatus toward the left cherelle and the angle of His. I fully mobilized the fat pad that was incarcerated in the hernia. I then continued by dissecting even further into the posterior retro-esophageal space all the way to the angle of His. I continued to mobilize the esophagus into the mediastinum circumferentially. Both vagal nerves were seen and preserved. At that point, I was able to have at least 3 to 5 cm of esophagus into the abdomen.? After I completely mobilized the esophagus from both the left and right cherelle and I had a good mobilization of the esophagus circumferentially, I closed the hernia defect with three interrupted #0 Surgidac sutures using the Endo Stitch device, one of which was placed posterior and two anterior to the esophagus. ? The stomach was then divided transversely with one Endo SHAY-45 purple, three SHAY-45 orange loads and two SHAY-60 articulating orange loads, using the AEON stapler and loads. Every effort was made that the gastric sleeve had a tubular shape and an even caliber throughout. Once the sleeve resection was completed, the staple line of the gastric sleeve was reinforced with Hemoclips. The resected stomach was retrieved without difficulty from the Elenita port. A gastropexy was then performed in order to prevent postoperative GERD and partial gastric volvulus. Several interrupted 3.0 Surgidac sutures were placed between the sleeve's staple line and the previously divided greater omentum and gastro-colic ligament using the Endo-Stitch device. ?An upper endoscopy was performed. There was no narrowing at the GE junction. The scope was easily advanced all the way to the pylorus which was clearly visualized. There was no narrowing anywhere and the sleeve's caliber was even throughout. The sleeve's staple line was inspected and there was no evidence of ischemia, bleeding or dehiscence. At that point the gastroscope was withdrawn from the patient?s mouth while we were decompressing the bowel and the stomach from any remaining air. I looked into the lesser sac to see how the sleeve was situating and it was situating well. There was no bleeding from the staple line, spleen, or short gastric vessels. The Mediflex retractor was removed, and the undersurface of the liver was inspected and there was no bleeding. The patient was placed in supine position. An separate transverse incision was made where the band's port was. Using cautery the subcutaneous tissues were divided until the port was identified. This particular port is not secured with sutures but with hooks. The remaining tubing system was delivered first and then slowly the four hooks were detached from the fascia and the port with tubing system were retrieved intact. I closed the fascial defect of the 12 mm port site with a figure of eight #1 Polysorb suture. Then 100 cc 0.25 % Marcaine plain with 10 mg of Dexamethasone were used to infiltrate the fascial closure as well as all skin incisions. At this point, the abdomen was deflated, all ports were removed under direct vision, and no bleeding was noted from any of the port sites. The skin incisions were irrigated with saline and were closed with 4-0 absorbable monofilament sutures. Steri-Strips and OpSites were used to cover all incisions. The patient was extubated and was transferred in stable condition to the recovery room for further care. I was present and performed all perez parts of the procedure. Ms. Payne was the anesthesiologists' assistant. There were no residents to assist with this case. Bijan Barrett MD, PhD, FACS ReplyForward Surgeon: Casper Barrett MD Anesthesia: GETA, local and other (TAP block) Was an Surface Miner used for this Procedure?: No Surface Miner: Lupe Payne Estimated blood loss (mL): 10 IV fluids (mL): 3,500 Urine output (mL): 0 (No Kerr to record) Pathology: other (1) gastric band and accessories, 2) Stomach) Condition: stable Disposition: PACU
[2021-09-19] MEDS: Famotidine/PF 20 MG/2 ML VIAL IVPUSH ×2 (16:25→20:59)
--- NOTE | 2021-09-19 16:27 | P.DS_ITS ---
DS: Providers Provider Date of Service: 09/20/21 Date of admission: 09/19/21 08:26 Primary care physician: Kevin Paulson MD DS: Diagnosis Discharge Diagnosis (1) Obesity: Status: Acute (2) BMI 32.0-32.9,adult: Status: Acute (3) JOSEF on CPAP: Status: Acute (4) Hypertension: Status: Acute (5) GERD (gastroesophageal reflux disease): Status: Acute (6) Hx of laparoscopic gastric banding: Status: Acute (7) Urinary incontinence: Status: Acute (8) Neuropathy: Status: Acute (9) Diaphragmatic hernia: Status: Acute (10) Cholelithiasis: Status: Acute (11) AV block, 1st degree: Status: Acute (12) Intra-abdominal adhesions: Status: Acute DS: Summary Hospital Course Hospital Course: ADMITTING DIAGNOSIS: morbid obesity, hx of gastric band, diaphragmatic hernia, HTN, JOSEF. depression DISCHARGE DIAGNOSIS: same, s/p laparoscopic sleeve gastrectomy and repair diaphragmatic hernia with removal of gastric band and accessories PAST SURGICAL HISTORY: gastric band 2005, bladder suspension PROCEDURE: upper endoscopy, laparoscopic sleeve gastrectomy and repair of diaphragmatic hernia hernia DISCHARGE SUMMARY: History of Present Illness: The patient is a 55 year-old woman with a BMI of 35.8 kg/m2 and associated co- morbidities as described above. The patient had extensive work-up,lost 19.4 lbs preoperatively and was electively scheduled for laparoscopic removal of gastric band and accessories, possible open sleeve gastrectomy and gastropexy. Risks and complications of the surgery were discussed with the patient in advance, particularly the possibility of , pulmonary embolism, anastomotic leak, bleeding, bowel injury, GERD, cardiac, renal or pulmonary complications. The patient understood all the risks and was in agreement with the surgical plan. Hospital Course: The patient underwent an uneventful laparoscopic sleeve gastrectomy with gastropexy and repair of diaphragmatic hernia on the day of admission. Postoperatively, the patient was transferred to the surgical floor. The patient received IV Acetaminophen and IV dilaudid for pain control. Patient was started on bariatric phase 1 diet POD #0. On postoperative day one, the patient was feeling well without nausea, vomiting, fevers, or tachycardia. The patient had some mild incisional pain and the abdomen was soft. On the morning of postoperative day one, the patient was continued on 1 ounce of water or ice every half hour. During the day, the patient did fairly well, having some incisional pain, but able to ambulate adequately and to tolerate liquids well. Since the patient is doing well, we decided that the patient was ready to be discharged. The patient was given instructions to follow-up with me next week and to call my office for any fever over 101, persistent abdominal pain, nausea, vomiting, GERD, symptoms of DVT such as calf tenderness, or leg swelling, or pulmonary embolism such as chest pain or shortness of breath. The patient was also instructed to drink 40-60 ounces of liquids per day using the 1-ounce cups. The patient had been given prescriptions for Tylenol for pain, Zofran prn for nausea, and pantoprazole and carafate previously. The patient was encouraged to ambulate and use the incentive spirometer. The patient was allowed to shower, but no baths, and encouraged to stay active at home. All of these instructions were given to the patient personally. All questions were answered and the patient understood all instructions, the instructions were also given to the patient in print. Time Spent with Patient Time attestation: Total time spent providing and/or coordinating discharge services: Discharge coordination time: Less than 30 minutes Quality: Stroke Does the patient have a stroke diagnosis?: No Physical Exam Vital Signs: Vital Signs: Last Vital Signs Temp 98.1 F 09/19/21 16:12 Pulse 80 09/19/21 16:18 Resp 16 09/19/21 16:18 BP 118/75 09/19/21 16:18 Pulse Ox 100 09/19/21 16:18 Body Mass Index 31.2 DS: Data Data Completed and Pending Labs on day of discharge: Laboratory Results - last 24 hr 09/19/21 08:44 COVID-19 (JAMES) Negative COVID-19 Clin Com See Note Discharge Plan Discharge Anticipated Discharge Date/Time: 09/20/21 11:18 Patient Disposition: Home, Self-Care Discharge Diagnosis: s/p sleeve gastrectomy Referrals: Kevin Paulson MD [Primary Care Provider] - 1 Week Discharge Medications: Continued bupropion HCl 300 mg tablet extended release 24 hr 300 mg PO DAILY RF: 0 diltiazem HCl 240 mg capsule,extended release 24hr 240 mg PO DAILY RF: 0 pantoprazole 40 mg tablet,delayed release (DR/EC) 40 mg PO DAILY Qty: 30 RF: 2 sucralfate 100 mg/mL suspension 10 ml PO BID Qty: 400 RF: 2 ondansetron HCl [Zofran] 4 mg tablet 4 mg PO Q12H Qty: 20 RF: 0 hydrochlorothiazide 12.5 mg tablet 12.5 mg PO DAILY Qty: 30 RF: 2 valsartan 160 mg tablet 160 mg PO DAILY Qty: 30 RF: 2 Discontinued mecobalamin (vitamin B12) 1,000 mcg tablet,chewable 1,000 mcg PO DAILY Qty: 30 RF: 5 valsartan-hydrochlorothiazide 160-12.5 mg tablet 1 tab PO DAILY RF: 0 polyethylene glycol 3350 [Miralax] 17 gram powder in packet 17 g PO DAILY Qty: 14 RF: 0 Discharge Orders: Discharge Order (Routine); Ordered 09/20/21 Ordered By: Casper Barrett Diet: other Activity on Discharge: No heavy lifting Stand Alone Forms: Patient Portal Discharge page Care Plan Goals: weight loss Health Concerns: obesity Plan of Treatment: No tub baths, sex or returning to work until discussed at first post op appointment. No exercise, alcohol, tobacco or illegal drug use. Continue to use incentive spirometer hourly while awake. Walk in home for 5- 10 minutes every 2 hours during the first week. Continue phase 1 diet today and start phase 2 diet tomorrow morning. Follow all instructions in the bariatric handbook and call with any questions. 1. Please call your doctor or come back to the emergency room should any new symptoms arise. 2. You will receive a courtesy call from [facility] 24-48 hours after discharge. 3. Activity: abstain from alcohol, practice limited stair climbing, no bending, no driving, no exercise, no illicit substances, no lifting, no sex, no tub bath, no work. 4. Diet: continue as discussed with Dr. Barrett. 5. Dressing Change/Wound Care: Your incision is covered by surgical glue. If the area is tender, you may apply an ice pack for short intervals (no more than 20 minutes on, followed by at least 20 minutes off). Do not apply heat. Do not use creams, lotions, or topical antibiotics unless instructed to do so by your surgeon. These can cause infection or allergic reaction. 6. Call your doctor if: - Your temperature exceeds 101.5 F - You experience excessive pain or swelling - You have an unexpected reaction to medication - You have excessive bleeding - You experience continued vomiting/nausea - Your incision begins to separate - Your incision shows signs of infection such as increased redness, swelling, excessive pain, heat, or drainage (light blood or clear fluid is normal) 7. General instructions: No lifting greater than 5 lbs for the next 4 weeks[address] within 24 hours of taking narcotic pain medications. If you do not move your bowels in the next 2 days, please take milk of magnesia over the counter. Please follow the post op diet and do not advance your diet until you are seen in the office in about 2 weeks. Please walk around your home every hour or two to prevent blood clots from forming in your legs. You do not need to wake from sleeping to walk. Please sleep in a bed or couch to prevent kinking at the hips and knees. Please take your incentive spirometer (your lung hr administrator) home with you and use it for the next few days to prevent pneumonias. You may shower, no hot tubs, baths or swimming pools. Please call the office with any questions or concerns such as increasing abdominal pain, fever, chills, shortness of breath, chest pain, leg pain or swelling, or redness or drainage from your incisions. Please stay on stage 3 diet which includes sugar free clear liquids such as ice pops and jello and broth and crystal light. Avoid all carbonation. Please drink 3 protein shakes with at least 25-30 grams of protein daily or 3 of the Celebrate 4:1 shakes which can be purchased in our office. The Celebrate shakes have all of the bariatric vitamins you need if you consume these shakes. If you are drinking other protein shakes, you will need to purchase the Celebrate multivitamins and calcium that we provide in the office (they will provide all the vitamins you need). Please make sure you are consuming at least 40-60 ounces of water in addition to your 3 protein shakes daily. Do not hesitate to contact the office with any questions at . The patient's medical history has been reviewed and they are considered low risk for post op DVT and therefore DVT prophylaxis is not considered necessary. Travel after surgery was reviewed. The patient has not disclosed any travel plans during the first 30 days after surgery and they have been advised that w ithin the first 30 days after surgery any bus, plane, train or car travel over 2 hours in duration is contraindicated due to the possibility of developing blood clots from immobility. Any travel, needs to include periods of ambulation of 10 minutes in duration every 2 hours. The patient was instructed to discuss any plans for travel during this period with their bariatric surgeon. Assessment: stable post op sleeve gastrectomy and hiatal hernia repair Discharge Date/Time: 09/20/21 13:46
[2021-09-19 16:34] LABS: Hematocrit 34.9 % (37-47); Hemoglobin 11.4 g/dl (12.0-16.0)
[2021-09-19 16:50] LABS: Anion Gap 13 (12-20); Blood Urea Nitrogen 7 mg/dL (9-16); Calcium 8.3 mg/dL (8.4-10.2); Carbon Dioxide 25 mmol/L (22-29); Chloride 106 mmol/L (96-108); Creatinine Clr Calc Pharmacy 49.6; Estimated Glomerular Filt Rate 45; Glucose Random 147 mg/dL (60-115); Potassium 3.7 mmol/L (3.3-5.1); Sodium 140 mmol/L (135-145)
[2021-09-19] MEDS: Metoclopramide HCl 10 MG/2 ML VIAL IVPUSH (18:52)
[2021-09-19] MEDS: ondansetron HCL 4 MG/2 ML VIAL IVPUSH ×2 (18:52→22:55)
[2021-09-19] MEDS: ceFAZolin Sodium/Dextrose,Iso 2 GM/50 ML PIGGYBACK IV (20:59)
[2021-09-19] MEDS: 0.9 % Sodium Chloride Flush 3 ML SYRINGE IVFLUSH (20:59)
[2021-09-20] MEDS: Lactated Ringers 1,000 ML 100 ML IVCONT (00:55)
[2021-09-20] MEDS: Metoclopramide HCl 10 MG/2 ML VIAL IVPUSH ×2 (02:42→08:50)
[2021-09-20 04:00] VITALS: BP 149/85; PULSE 78; RESP 18; TEMP 36.3; O2SAT 98
[2021-09-20 06:17] LABS: MANUAL DIFF FLAG NO
[2021-09-20 06:21] LABS: Basophils Percent Auto 0.1 % (0-2); Hematocrit 36.8 % (37-47); Imm Gran Abs Auto 0.02 X10*3/uL (0.00-0.03); Imm Gran Pct Auto 0.2 % (0.0-0.4); Lymphocytes Absolute Auto 0.9 X10*3/uL (1.2-4.9); Lymphocytes Percent Auto 11.1 % (20-40); Mean Corpuscular HGB Conc 32.6 g/dl (31.0-35.0); Mean Corpuscular Volume 88.9 fL (80-98); Mean Platelet Volume 9.4 fL (9.4-12.3); Monocytes Absolute Auto 0.2 X10*3/uL (0.1-1.2); Monocytes Percent Auto 2.8 % (2-11); Neutrophils Percent Auto 85.8 % (45-73); Platelet Count 144 X10*3/uL (160-400); Red Blood Count 4.14 X10*6/uL (4.20-5.50); Red Cell Distribution Width 12.3 % (11.0-16.0); White Blood Count 8.1 X10*3/uL (4.8-10.8)
[2021-09-20] MEDS: ondansetron HCL 4 MG/2 ML VIAL IVPUSH (06:35)
[2021-09-20 06:38] LABS: Anion Gap 16 (12-20); Blood Urea Nitrogen 7 mg/dL (9-16); Calcium 9.1 mg/dL (8.4-10.2); Carbon Dioxide 25 mmol/L (22-29); Chloride 101 mmol/L (96-108); Creatinine Clr Calc Pharmacy 60.8; Estimated Glomerular Filt Rate 56; Glucose Random 158 mg/dL (60-115); Potassium 4.7 mmol/L (3.3-5.1); Sodium 137 mmol/L (135-145)
[2021-09-20 07:05] VITALS: BP 150/85; PULSE 77; RESP 17; TEMP 36.3; O2SAT 100
[2021-09-20] MEDS: Famotidine/PF 20 MG/2 ML VIAL IVPUSH (07:13)
[2021-09-20] MEDS: dilTIAZem HCL CD 240 MG CAP.ER.DEG PO (08:50)
[2021-09-20] MEDS: buPROPion HCl XL 300 MG TAB.ER.24H PO (08:50)
[2021-09-20] MEDS: Valsartan 160 MG TABLET PO (08:50)
--- NOTE | 2021-09-20 09:19 | MHC.CM.PN ---
CM MET WITH PT WHO REPORTS SHE LIVES ALONE AND IS INDEPENDENT WITH CARE PT REPORTS SHE USES A CPAP AT HOME AND HAS NO SERVICES PT CONFIRMS HER PCP IS MICHAEL SANTOS PT REPORTS SHE HAS A HCP ALREADY THAT SHE COMPLETED WHILE AT [facility] CURRENT DC PLAN IS HOME WITH NO SERVICES
[2021-09-20 10:31] VITALS: O2SAT 98
[2021-09-20 11:08] VITALS: BP 158/90; PULSE 77; RESP 16; TEMP 36.2; O2SAT 99
--- NOTE | 2021-09-20 12:30 | HO.POSTANES ---
Post Anesthesia Evaluation Post Anesthesia Evaluation Vital Signs: Vital Signs Temp Pulse Resp BP Pulse Ox 09/20/21 11:08 97.1 F 77 16 158/90 H 99 09/20/21 10:31 98 09/20/21 07:05 97.4 F 77 17 150/85 H 100 09/20/21 04:00 97.4 F 78 18 149/85 H 98 Anesthesia: General Endotracheal-GETA Mental Status: Awake Pain Control: Satisfactory Nausea/Vomiting: None Hydration: Adequate Anesthesia-Related Issues: No Anes. Related Issues
--- NOTE | 2021-09-20 13:44 | MHC.CM.PN ---
PATIENT IS DISCHARGED HOME- SELF CARE. RIDE HOME HAS BEEN PREARRANGED RN AWARE OF PLAN.
== END 2021-09-20 13:46 | disposition home or self-care (01) | DRG 403 ==
LOC: HO.SSSA 08:49 → HO.S3 14:04
PROVIDERS: Physician Assistant; Admitting Provider Surgery; PCP Internal Medicine; Visit Provider Surgery
PROC: 0DB64Z3 Excision of Stomach, Percutaneous Endoscopic Approach, Vertical (ICD-10-PCS; CPT 43775; principal; 2021-09-19 10:40)
DX: E66.01 Morbid (severe) obesity due to excess calories (principal); K44.0 Diaphragmatic hernia with obstruction, without gangrene; K21.9 Gastro-esophageal reflux disease without esophagitis; Z68.32 Body mass index [BMI] 32.0-32.9, adult; K66.0 Peritoneal adhesions (postprocedural) (postinfection); I10 Essential (primary) hypertension; Z98.84 Bariatric surgery status; Z20.822 Contact with and (suspected) exposure to COVID-19; Z79.899 Other long term (current) drug therapy
CPT/HCPCS: 43775; 43774; 43281; 36415; 80048; 80053; 80061; 83036; 83525; 84443; 85014; 85018; 85025; 85610; 85730; 86140; 86850; 86900; 86901; 87635; 88300; 88304; 88307; 88342; 99024; J0131; J0690; J1100; J1170; J2250; J2370; J2405; J2765; J3010

== ENCOUNTER → 2021-09-25 07:12 | Outpatient (BNVA) | payer OTHER, SELFPAY | PROVIDERS: PCP Internal Medicine; Referring Provider Internal Medicine; Visit Provider Surgery ==

== ENCOUNTER → 2021-10-24 08:13 | Outpatient (BNVA) | payer OTHER, SELFPAY | PROVIDERS: PCP Internal Medicine; Visit Provider Physician Assistant Surgical ==

== ENCOUNTER → 2021-11-23 10:00 | Outpatient (BNVA) | payer OTHER, SELFPAY | PROVIDERS: PCP Internal Medicine; Visit Provider Physician Assistant Surgical ==

== ENCOUNTER → 2021-12-29 07:58 | Outpatient (BNVA) | payer OTHER, SELFPAY | PROVIDERS: PCP Internal Medicine; Visit Provider Physician Assistant Surgical ==